=== PATIENT | male | born 1960 | race Caucasian/White ===

== ENCOUNTER 2025-08-18 13:45 | Outpatient (CLI) | payer OTHER ==
[2025-08-18 14:39] LABS: #Basophils 0.09 10x3/uL (0.0-0.2); #Eosinophils 0.38 10x3/uL (0.0-0.5); #Monocytes 0.68 10x3/uL (0.0-1.1); #Neutrophils 4.56 10x3/uL (1.5-8.4); %Basophils 1.2 % (0.0-2.0); %Eosinophils 4.9 % (0.0-6.0); %Lymphocytes 25.4 % (18.0-47.0); %Monocytes 8.9 % (0.0-10.0); %Neutrophils 59.3 % (40.0-75.0); Hematocrit 42.2 % (38.8-50.0); Hemoglobin 13.9 g/dL (13.5-17.5); Mean Corpuscular Hemoglobin 29.6 pg (27.0-33.0); Mean Corpuscular Volume 89.8 fL (81.2-95.1); Platelet Count 305 10x3/uL (150-450); Red Blood Cell (RBC) Count 4.70 10x6/uL (4.32-5.72); White Blood Cell (WBC) Count 7.68 10x3/uL (3.5-10.5)
[2025-08-18 14:49] LABS: Anion Gap 11 mmol/L (10-20); BUN (Urea Nitrogen) 14 mg/dL (8.4-25.7); Calc. Creatinine Clearance 0 mL/min (70-130); Calcium 8.7 mg/dL (7.8-10.44); Carbon Dioxide 22 mmol/L (23-31); Chloride 113 mmol/L (98-107); Glucose 119 mg/dL (80-115); Potassium 3.8 mmol/L (3.5-5.1); Sodium 142 mmol/L (136-145)
== END 2025-08-18 13:46 | disposition home or self-care (01) ==
LOC: CSHLAB 13:45
PROVIDERS: ATTEND Surgery
DX: Z01.818 Encounter for other preprocedural examination (principal); K44.9 Diaphragmatic hernia without obstruction or gangrene
CPT/HCPCS: 80048; 85025; 93005; 93010

== ENCOUNTER 2025-08-24 08:23 | Day surgery (SDC) | payer OTHER ==
[2025-08-18 14:05] VITALS: BMI 32.5
[2025-08-24] MEDS ORDERED: PROPOFOL 20 ML ONE (08:53)
[2025-08-24] MEDS ORDERED: Rocuronium Bromide 10 MG/ML (10ML VIAL) ONE (08:53)
[2025-08-24] MEDS ORDERED: CEFAZOLIN 2 GM VIAL ONE (09:19)
[2025-08-24] MEDS ORDERED: Bupivacaine/Epinephrine 0.25% 30 ML VIAL ONE (09:19)
[2025-08-24] MEDS ORDERED: SUGAMMADEX SODIUM 200 MG/2 ML VIAL ONE (11:04)
[2025-08-24] MEDS ORDERED: HYDROmorphone 0.5 MG/0.5 ML SYRINGE ONE (12:50)
[2025-08-24] MEDS ORDERED: HYDROcodone/Acetaminophen 5/325 mg Tablet ONE (13:52)
== END 2025-08-24 14:30 | disposition home or self-care (01) ==
LOC: CSHSDC 08:23
PROVIDERS: ATTEND Surgery
PROC: 0BQT3ZZ Repair Diaphragm, Percutaneous Approach (ICD-10-PCS; principal; 2025-08-24)
DX: K44.9 Diaphragmatic hernia without obstruction or gangrene (principal); K21.00 Gastro-esophageal reflux disease with esophagitis, without bleeding
CPT/HCPCS: C1889; J1100; J1171; J2704; J3010; S2900